=== PATIENT | female | born 1945 | race Two or more races ===

== ENCOUNTER → 2017-11-11 13:29 | Outpatient (CLI) | payer OTHER ==
[~2017-11-11 13:29] MED LIST: ALTACE10 MG; ARMOUR THYROID15 MG PO; ATENOLOL50 MG; COZAAR50 MG; CYTOMEL25 MCG; HYDROCHLOROTHIA25 MG
== END | disposition home or self-care (01) ==
LOC: PPHC 13:29
DX: J06.9 Acute upper respiratory infection, unspecified (principal)

== ENCOUNTER 2017-11-11 14:58 | Outpatient (CLI) | payer OTHER | END 2017-11-11 15:08 | disposition home or self-care (01) | LOC: LAB 14:58 | DX: J06.9 Acute upper respiratory infection, unspecified (principal) ==

== ENCOUNTER 2018-05-29 08:06 | Outpatient (CLI) | payer OTHER | END 2018-05-29 08:11 | disposition home or self-care (01) | LOC: EDBD 08:06 → LAB 08:06 | DX: N39.0 Urinary tract infection, site not specified (principal); H25.819 Combined forms of age-related cataract, unspecified eye; D68.8 Other specified coagulation defects; I10 Essential (primary) hypertension; D50.8 Other iron deficiency anemias; A15.0 Tuberculosis of lung ==

== ENCOUNTER 2018-10-02 07:44 | Outpatient (CLI) | payer OTHER | END 2018-10-02 08:06 | disposition home or self-care (01) | LOC: EDBD 07:44 → LAB 07:44 | DX: H25.813 Combined forms of age-related cataract, bilateral (principal); N39.0 Urinary tract infection, site not specified; D50.8 Other iron deficiency anemias; I10 Essential (primary) hypertension ==

== ENCOUNTER 2019-04-16 08:39 | Outpatient (CLI) | payer OTHER | END 2019-04-16 14:40 | disposition home or self-care (01) | LOC: LAB 08:39 | DX: E78.2 Mixed hyperlipidemia (principal); N95.0 Postmenopausal bleeding; I10 Essential (primary) hypertension ==

== ENCOUNTER 2024-02-17 13:41 | Outpatient (CLI) | payer OTHER | END 2024-02-17 13:45 | disposition home or self-care (01) | LOC: NUCLEAR 13:41 | PROVIDERS: ATTEND Orthopaedic Surgery | DX: M81.0 Age-related osteoporosis without current pathological fracture (principal) ==